=== PATIENT | male | born 1975 | race Caucasian/White ===

== ENCOUNTER → 2017-05-16 | Outpatient (CLI) | payer BC ==
--- NOTE | ~2017-05-16 | US116 ---
[facility] A Service of [facility] RADIOLOGY TEXT RESULTS PATIENT: IRMA BARAJAS LOCATION: [facility] : 73 UNIT #: [id number] AGE: [address]: KHANG MCGRATH APRN SEX: M ORDER DR: [id number] [facility]. [place], [place] [address] [id number] O MR#: [id number] Acc #: [id number] NAME: IRMA BARAJAS : 1975 SEX: M STUDY DATE/TIME: 05/16/2017 13:44 UNIT: [facility] ROOM: STUDY DESCRIPTION: US Soft Tissue Head/Neck Attending Physician: Tyrell Mcgrath Aprn Referring Physician: Tyrell Mcgrath Aprn Ordering Physician: Tyrell Mcgrath Aprn Primary Care Physician: Tyrell Mcgrath Aprn MEDICAL IMAGING REPORT This report is preliminary unless electronic signature is present EXAM Ultrasound soft tissue of the head. INDICATION Right neck/head mass. Palpable mass along the right-side of the neck. FINDINGS The palpable abnormality correlates with the right lobe of the thyroid. Within the inferior right lobe of the thyroid, there is a 4.7 x 1.9 x 2.6 cm nodule. There is some mural nodularity to the thyroid nodule. There is no color-Doppler flow within this mural nodularity. The right thyroid gland measures 6.2 x 2.6 x 2.3 cm. IMPRESSION The palpable nodule on the right side of the neck correlates with a predominately cystic thyroid nodule. Dictated by... Van Lowe M.D. THIS IS AN ELECTRONICALLY VERIFIED REPORT Van Lowe M.D. at 05/21/2017 9:46 AM JORDYN/mathew TD: 05/21/2017 01:41 JOB #: [id number] MEDICAL IMAGING REPORT Page 1 of 1 COPY
== END | disposition home or self-care (01) ==
LOC: CGUS 13:22
DX: R22.1 Localized swelling, mass and lump, neck (principal)
CPT/HCPCS: 76536